=== PATIENT | male | born 1990 | race Caucasian/White ===

== ENCOUNTER 2017-12-16 03:26 | Emergency (ER) | payer SELFPAY ==
[~2017-12-16] VITALS: Ht 190.5 cm; Wt 77.0 kg
[2017-12-16 05:17] VITALS: BP 125/80
== END 2017-12-16 06:24 | disposition left against medical advice (07) ==
LOC: ER 03:26
DX: Z43.3 Encounter for attention to colostomy (principal); Z53.21 Procedure and treatment not carried out due to patient leaving prior to being seen by health care provider

== ENCOUNTER 2017-12-16 06:47 | Emergency (ER) | payer MEDICARE, MEDICAID ==
[~2017-12-16] VITALS: Ht 190.5 cm; Wt 77.0 kg
[2017-12-16 07:00] VITALS: BP 124/85
== END 2017-12-16 09:24 | disposition left against medical advice (07) ==
LOC: ER 07:28
DX: K94.03 Colostomy malfunction (principal); K50.90 Crohn's disease, unspecified, without complications; F17.210 Nicotine dependence, cigarettes, uncomplicated; F43.10 Post-traumatic stress disorder, unspecified; Z87.820 Personal history of traumatic brain injury; Z88.5 Allergy status to narcotic agent
CPT/HCPCS: 99284

== ENCOUNTER 2018-05-11 13:38 | Emergency (ER) | payer MEDICARE, MEDICAID ==
[~2018-05-11] VITALS: Ht 190.5 cm; Wt 73.0 kg
[2018-05-11 14:05] VITALS: BP 126/81
== END 2018-05-11 15:09 | disposition home or self-care (01) ==
LOC: ER 13:38
DX: Z43.3 Encounter for attention to colostomy (principal); K50.90 Crohn's disease, unspecified, without complications; F17.200 Nicotine dependence, unspecified, uncomplicated; Z88.5 Allergy status to narcotic agent
CPT/HCPCS: 99281

== ENCOUNTER 2018-11-22 11:55 | Emergency (ER) | payer MEDICARE, MEDICAID ==
[~2018-11-22] VITALS: Ht 175.3 cm; Wt 79.0 kg
[2018-11-22 12:08] VITALS: BP 145/73
== END 2018-11-22 17:47 | disposition home or self-care (01) ==
LOC: ER 12:25
DX: Z43.3 Encounter for attention to colostomy (principal); R45.6 Violent behavior; K21.9 Gastro-esophageal reflux disease without esophagitis; Z88.6 Allergy status to analgesic agent; Z98.890 Other specified postprocedural states
CPT/HCPCS: 99283